=== PATIENT | male | born 1965 | race Caucasian/White ===

== ENCOUNTER 2020-08-21 06:07 | Outpatient (REF) | payer OTHER, SELFPAY ==
[2020-08-21 06:55] LABS: MANUAL DIFF FLAG NO
[2020-08-21 07:05] LABS: Basophils Absolute Auto 0.1 X10*3/uL (0.0-0.2); Basophils Percent Auto 0.9 % (0-2); Eosinophils Absolute Auto 0.2 X10*3/uL (0.0-0.4); Eosinophils Percent Auto 3.1 % (0-4); Hematocrit 44.1 % (42-52); Hemoglobin 14.5 g/dl (14.0-18.0); Imm Gran Abs Auto 0.02 X10*3/uL (0.00-0.03); Imm Gran Pct Auto 0.3 % (0.0-0.4); Lymphocytes Absolute Auto 1.7 X10*3/uL (1.2-4.9); Lymphocytes Percent Auto 26.7 % (20-40); Mean Corpuscular HGB Conc 32.9 g/dl (31.0-36.0); Mean Corpuscular Hemoglobin 30.2 pg (27.0-33.0); Mean Corpuscular Volume 91.9 fL (80-98); Mean Platelet Volume 10.6 fL (9.4-12.4); Monocytes Absolute Auto 0.6 X10*3/uL (0.1-1.2); Monocytes Percent Auto 8.6 % (2-11); Neutrophils Absolute Auto 3.9 X10*3/uL (2.0-8.3); Neutrophils Percent Auto 60.4 % (45-73); Platelet Count 303 X10*3/uL (160-400); Red Cell Distribution Width 12.1 % (11.0-16.0); White Blood Count 6.5 X10*3/uL (4.8-10.8)
[2020-08-21 07:36] LABS: Alanine Aminotransferase 20 U/L (0-40); Albumin Level 4.3 g/dL (3.5-5.0); Alkaline Phosphatase 45 U/L (39-117); Anion Gap 14 (12-20); Aspartate Amino Transferase 19 U/L (5-37); Bilirubin Total 1.4 mg/dL (0.0-1.0); Blood Urea Nitrogen 14 mg/dL (9-16); Calcium 8.7 mg/dL (8.4-10.2); Carbon Dioxide 27 mmol/L (22-29); Chloride 104 mmol/L (96-108); Cholesterol 158 mg/dL; Estimated Glomerular Filt Rate > 60; Glucose Fasting 93 mg/dL (60-99); HDL Cholesterol 48 mg/dL; LDL Cholesterol Calculated 99 mg/dl; Potassium 4.5 mmol/l (3.3-5.1); Sodium 140 mmol/L (135-145); Triglycerides 55 mg/dL
[2020-08-21 08:10] LABS: Prostate Specific Antigen Scr 0.59 ng/mL (<0.05-4.0)
== END 2020-08-21 06:08 | disposition home or self-care (01) ==
LOC: HO.LAB 06:07
PROVIDERS: PCP Internal Medicine; Visit Provider Internal Medicine
DX: Z00.00 Encounter for general adult medical examination without abnormal findings (principal); Z12.5 Encounter for screening for malignant neoplasm of prostate
CPT/HCPCS: 36415; 80053; 80061; 84153; 85025

== ENCOUNTER 2020-09-17 12:08 | Outpatient (REF) | payer OTHER, SELFPAY ==
[2020-09-17 12:59] LABS: Influenza A PCR NEGATIVE (Negative); Influenza B PCR NEGATIVE (Negative); Resp Syncy Virus RNA Qual PCR NEGATIVE (Negative); SARS COV2 PCR INHOUSE NEGATIVE (Negative)
== END 2020-09-17 12:09 | disposition home or self-care (01) ==
LOC: HO.LNP 12:08
PROVIDERS: Visit Provider Internal Medicine
DX: Z20.822 Contact with and (suspected) exposure to COVID-19 (principal)
CPT/HCPCS: 0241U

== ENCOUNTER 2021-06-11 14:25 | Outpatient (REF) | payer OTHER, SELFPAY ==
[2021-06-11 15:31] LABS: Influenza A PCR NEGATIVE (Negative); Influenza B PCR NEGATIVE (Negative); Resp Syncy Virus RNA Qual PCR NEGATIVE (Negative); SARS COV2 PCR INHOUSE NEGATIVE (Negative)
== END 2021-06-11 14:26 | disposition home or self-care (01) ==
LOC: HO.LNP 14:25
PROVIDERS: Visit Provider Internal Medicine
DX: Z20.822 Contact with and (suspected) exposure to COVID-19 (principal)
CPT/HCPCS: 0241U

== ENCOUNTER 2021-07-22 11:26 | Outpatient (REF) | payer OTHER, SELFPAY ==
[2021-07-22 12:28] LABS: Influenza A PCR NEGATIVE (Negative); Influenza B PCR NEGATIVE (Negative); Resp Syncy Virus RNA Qual PCR NEGATIVE (Negative); SARS COV2 PCR INHOUSE NEGATIVE (Negative)
== END 2021-07-22 11:27 | disposition home or self-care (01) ==
LOC: HO.LNP 11:26
PROVIDERS: Visit Provider Internal Medicine
DX: Z20.822 Contact with and (suspected) exposure to COVID-19 (principal)
CPT/HCPCS: 0241U

== ENCOUNTER 2022-09-24 06:02 | Outpatient (REF) | payer OTHER, SELFPAY ==
[2022-09-24 06:15] LABS: MANUAL DIFF FLAG NO
[2022-09-24 07:47] LABS: Basophils Absolute Auto 0.1 X10*3/uL (0.0-0.2); Basophils Percent Auto 0.7 % (0-2); Eosinophils Absolute Auto 0.2 X10*3/uL (0.0-0.4); Eosinophils Percent Auto 2.7 % (0-4); Hematocrit 44.7 % (42.0-52.0); Imm Gran Abs Auto 0.01 X10*3/uL (0.00-0.03); Imm Gran Pct Auto 0.1 % (0.0-0.4); Lymphocytes Absolute Auto 1.7 X10*3/uL (1.2-4.9); Lymphocytes Percent Auto 24.7 % (20-40); Mean Corpuscular HGB Conc 33.6 g/dl (31.0-36.0); Mean Corpuscular Hemoglobin 30.8 pg (27.0-33.0); Mean Corpuscular Volume 91.8 fL (80.0-98.0); Mean Platelet Volume 10.9 fL (9.4-12.4); Monocytes Absolute Auto 0.7 X10*3/uL (0.1-1.2); Monocytes Percent Auto 10.1 % (2-11); Neutrophils Absolute Auto 4.1 x10*3/uL (2.0-8.3); Neutrophils Percent Auto 61.7 % (45-73); Platelet Count 316 X10*3/uL (160-400); Red Blood Count 4.87 X10*6/uL (4.60-5.80); Red Cell Distribution Width 12.2 % (11.0-16.0); White Blood Count 6.7 X10*3/uL (4.8-10.8)
[2022-09-24 08:18] LABS: Alanine Aminotransferase 19 U/L (0-40); Albumin Level 4.2 g/dL (3.5-5.0); Alkaline Phosphatase 47 U/L (39-117); Anion Gap 14 (12-20); Aspartate Amino Transferase 19 U/L (5-37); Bilirubin Total 1.6 mg/dL (0.0-1.0); Blood Urea Nitrogen 18 mg/dL (9-16); Calcium 8.8 mg/dL (8.4-10.2); Carbon Dioxide 28 mmol/L (22-29); Chloride 105 mmol/L (96-108); Cholesterol 180 mg/dL; Estimated Glomerular Filt Rate > 60; Glucose Fasting 85 mg/dL (60-99); HDL Cholesterol 47 mg/dL; LDL Cholesterol Calculated 120 mg/dl; Potassium 4.6 mmol/L (3.3-5.1); Sodium 142 mmol/L (135-145); Total Protein 6.8 g/dL (6.5-8.0); Triglycerides 65 mg/dL
[2022-09-24 08:33] LABS: Prostate Specific Antigen 0.73 ng/mL (<0.05-4.0)
== END 2022-09-24 06:03 | disposition home or self-care (01) ==
LOC: HO.LAB 06:02
PROVIDERS: PCP Internal Medicine; Visit Provider Internal Medicine
DX: Z00.00 Encounter for general adult medical examination without abnormal findings (principal); Z12.5 Encounter for screening for malignant neoplasm of prostate
CPT/HCPCS: 36415; 80053; 80061; 84153; 85025

== ENCOUNTER 2023-09-26 06:05 | Outpatient (REF) | payer OTHER, SELFPAY ==
[2023-09-26 06:18] LABS: MANUAL DIFF FLAG NO
[2023-09-26 07:33] LABS: Basophils Absolute Auto 0.1 X10*3/uL (0.0-0.2); Basophils Percent Auto 0.8 % (0-2); Eosinophils Absolute Auto 0.2 X10*3/uL (0.0-0.4); Eosinophils Percent Auto 2.9 % (0-4); Hematocrit 44.3 % (42.0-52.0); Hemoglobin 14.5 g/dl (14.0-18.0); Imm Gran Abs Auto 0.01 X10*3/uL (0.00-0.03); Imm Gran Pct Auto 0.2 % (0.0-0.4); Lymphocytes Absolute Auto 1.7 X10*3/uL (1.2-4.9); Lymphocytes Percent Auto 27.9 % (20-40); Mean Corpuscular HGB Conc 32.7 g/dl (31.0-36.0); Mean Corpuscular Volume 91.7 fL (80.0-98.0); Mean Platelet Volume 10.8 fL (9.4-12.4); Monocytes Absolute Auto 0.5 X10*3/uL (0.1-1.2); Monocytes Percent Auto 8.9 % (2-11); Neutrophils Absolute Auto 3.5 x10*3/uL (2.0-8.3); Neutrophils Percent Auto 59.3 % (45-73); Platelet Count 307 X10*3/uL (160-400); Red Blood Count 4.83 X10*6/uL (4.60-5.80); Red Cell Distribution Width 12.1 % (11.0-16.0)
[2023-09-26 07:56] LABS: Appearance Urine Clear; Color Urine Yellow; Glucose Urine UA Negative (Negative); Leukocyte Esterase Urine Negative (Negative); Nitrite Urine Negative (Negative); PH 6.5 (5.0-9.0); Urine Blood Negative (Negative); Urine Ketones Negative (Negative); Urine Protein Negative (Neg-Trace)
[2023-09-26 08:05] LABS: Alanine Aminotransferase 15 U/L (0-40); Albumin Level 4.1 g/dL (3.5-5.0); Alkaline Phosphatase 44 U/L (39-117); Anion Gap 8 (12-20); Aspartate Amino Transferase 18 U/L (5-37); Bilirubin Total 1.6 mg/dL (0.0-1.0); Blood Urea Nitrogen 14 mg/dL (9-16); Carbon Dioxide 31 mmol/L (22-29); Chloride 105 mmol/L (96-108); Cholesterol 162 mg/dL (<200); Estimated Glomerular Filt Rate > 60; Glucose Fasting 82 mg/dL (60-99); HDL Cholesterol 50 mg/dL (>40); LDL Cholesterol Calculated 98 mg/dL (<100); Sodium 140 mmol/L (135-145); Triglycerides 74 mg/dL (<150)
[2023-09-26 08:23] LABS: Prostate Specific Antigen Scr 0.78 ng/mL (<0.05-4.0)
== END 2023-09-26 06:06 | disposition home or self-care (01) ==
LOC: HO.LAB 06:05
PROVIDERS: PCP Internal Medicine; Visit Provider Internal Medicine
DX: Z12.5 Encounter for screening for malignant neoplasm of prostate (principal); Z13.6 Encounter for screening for cardiovascular disorders; N40.0 Benign prostatic hyperplasia without lower urinary tract symptoms; K21.9 Gastro-esophageal reflux disease without esophagitis; R63.4 Abnormal weight loss
CPT/HCPCS: 36415; 80053; 80061; 81003; 84153; 85025

== ENCOUNTER 2024-11-06 07:58 | Day surgery (SDC) | payer OTHER, SELFPAY ==
[2024-11-02 13:06] VITALS: BMI 29.0
[2024-11-06] MEDS: Lactated Ringers 1,000 ML 80 ML IVCONT (08:43)
[2024-11-06 08:44] VITALS: BMI 27.7
[2024-11-06 09:09] VITALS: BP 152/77; PULSE 64; RESP 18; TEMP 36.3; O2SAT 100
--- NOTE | 2024-11-06 10:21 | MHC.SHP ---
Pre-Procedural Eval Section A - 24 Hr Update-Section A only Date of Service: 11/06/24 The patient is an INPATIENT: No Changes since office visit: No Cold of Flu in the past 2 weeks, No New Medical Problems, No Changes in Medication and No Patient answered all questions The patient has been examined within 24 hours of the surgical procedure. The History & Physical has been completed within 30 days and I have reviewed it.: Yes Section B - Complete if H&P > 30 days Chief Complaint: Gastro-esophageal reflux disease without esophagit Allergies: Allergies Allergy/AdvReac Type Severity Reaction Status Date / Time amoxicillin Allergy Intermediate Rash Verified 11/06/24 08:51 (childhood allergy) environmental allergies Allergy Intermediate hayfever Verified 11/06/24 08:51 symptoms Plan I have reviewed the history and physical and performed a pertinent physical examination on my patient. No changes have occurred unless specified. Time Spent With Patient Time: Total time managing care of this patient today ____ minutes.
--- NOTE | 2024-11-06 10:36 | HO.ANESPROP2 ---
HPI - Anesthesia Eval Consult details Narrative: 59 yo male patient for EGD, Colonoscopy PMFSH Past Medical History Medical History BPH (benign prostatic hyperplasia) GERD (gastroesophageal reflux disease) Family History Family history of problems with anesthesia: No Surgical History Surgical History Hx of oral surgery H/O colonoscopy History of Problems with Anesthesia: No Social History Social History Are you a primary director career services to a significant other at home: No Do you presently have visiting nurse or other home services: No Patient Tobacco Use Status: Never used Tobacco Use of substances other than those prescribed or required for medical reasons: No Have you been hit, kicked, punched, or otherwise hurt by someone within the past year? If so, by whom?: No Spiritual Healthcare Practices: no Restorationist Healthcare Practices: no Cultural Healthcare Practices: no Are you DNR?: No Advance Directives: No ( is primary contact) Advance Directives Information Provided: Yes (as above noted) Advance Directives on File: No Poor oral hygiene: No Meds Allergies Allergy/AdvReac Type Severity Reaction Status Date / Time amoxicillin Allergy Intermediate Rash Verified 11/06/24 08:51 (childhood allergy) environmental allergies Allergy Intermediate hayfever Verified 11/06/24 08:51 symptoms Active Medications: Current Medications Lactated Ringer's (Lr) 1,000 mls @ 80 mls/hr IVCONT .[id number] TJ Last Admin: 11/06/24 08:43 Dose: 80 mls/hr Home Medications ?Medication ?Instructions ?Recorded ?Confirmed ?Last Taken ?Type No Known Home Meds 11/02/24 11/02/24 Unknown History Exam Height,Weight and Vital Signs: Height 5 ft 7 in Weight 80.286 kg Last Vital Signs Temp 97.4 F 11/06/24 09:09 Pulse 64 11/06/24 09:09 Resp 18 11/06/24 09:09 BP 152/77 H 11/06/24 09:09 Pulse Ox 100 11/06/24 09:09 O2 Del Method Room Air 11/06/24 09:09 Airway Mallampati Class: III TM Dist: >3cm Neck ROM: Full Loose/Missing/Broken Teeth: No (Dental implants. Denies broken, loose or missing teeth ) Heart: RRR Lungs: CTAB Assessment and Plan Assessment Anesthesia Assessment: Anesthesia Plan Discussed and Chart Reviewed Final Anesthetic Review Family History of Problems with Anesthesia: No History of Problems with Anesthesia: No NPO: Yes ASA Class: II Final Preanesthetic Review: No Changes in Pt Med Stat, Meds/Allgs Chart Reviewed, Consent Obtained/Reviewed and Anes Risks/Benef Reviewed Patient Risk: Low Procedure Risk: Low Assessment/Block/Sedation in SS: Assess/Block/Sedation-SS Anesthetic Plan Anesthetic Plan: TIVA Disposition: Standard PACU
[2024-11-06 11:13] VITALS: BP 99/56; PULSE 58; RESP 17; TEMP 36.4; O2SAT 97
[2024-11-06 11:28] VITALS: BP 102/62; PULSE 53; RESP 17; O2SAT 97
[2024-11-06 11:46] VITALS: BP 141/73; PULSE 49; RESP 17; TEMP 36.8; O2SAT 97
--- NOTE | 2024-11-06 12:30 | OP_ITS ---
DATE OF SERVICE: 11/06/2024 SURGEON: Xavier Canada MD INDICATIONS: Colon cancer screening and gastroesophageal reflux disease. PREOPERATIVE DIAGNOSIS: POSTOPERATIVE DIAGNOSIS: PROCEDURE PERFORMED: Upper endoscopy with biopsy, colonoscopy to the cecum. ESTIMATED BLOOD LOSS: COMPLICATIONS: ANESTHESIA: Monitored anesthesia care. ASSISTANTS: SPECIMENS: DESCRIPTION OF PROCEDURE: A history and physical performed. The risks and benefits of the procedure were explained to the patient. Informed consent was obtained. The patient was placed in the left lateral decubitus position. The Olympus videogastroscope was introduced into the esophagus, stomach, and duodenum. Examination was performed. The scope was removed. He was repositioned for colonoscopy. A digital rectal exam was performed and was found to be normal. The Olympus pediatric videocolonoscope was introduced in the rectum and advanced to the cecum. The cecum was identified by transillumination, palpation, and identification of ileocecal valve. Examination was performed. The scope was removed. He tolerated the procedure well and was returned to recovery area in stable condition. FINDINGS: Esophagus: The esophagus was normal. Biopsies were obtained from the EG junction. Stomach: The stomach showed a focal area of erosive gastritis in the antrum. Biopsies were obtained from the antrum. Duodenum: The bulb and 2nd portion were normal. Colonoscopy: The terminal ileum was not examined. The visualized colonic mucosa was normal. The quality of the prep was good. No polyps were identified. Retroflexed examination showed small internal hemorrhoids. IMPRESSION: 1. Erosive gastritis. 2. Normal colonoscopy. RECOMMENDATIONS: 1. Follow up the biopsy results. 2. Repeat colonoscopy is recommended in 10 years for average-risk individuals. MD ANDERSON Pizarro/PIPERL / [id number]
== END 2024-11-06 12:08 | disposition home or self-care (01) ==
PROVIDERS: PCP Internal Medicine; Visit Provider Internal Medicine Gastroenterology
PROC: (CPT 45378; principal; 2024-11-06 10:00)
DX: Z12.11 Encounter for screening for malignant neoplasm of colon (principal); Z86.0101 Personal history of adenomatous and serrated colon polyps; K64.8 Other hemorrhoids; K21.9 Gastro-esophageal reflux disease without esophagitis; K29.50 Unspecified chronic gastritis without bleeding; R00.0 Tachycardia, unspecified; Z79.899 Other long term (current) drug therapy; Z88.1 Allergy status to other antibiotic agents
CPT/HCPCS: 45378; 43239; 88305; 88313; 88342; J2003; J2704

== ENCOUNTER 2024-11-19 15:14 | Outpatient (AMB) | payer OTHER, SELFPAY ==
--- NOTE | 2024-11-19 15:15 | MHC.PC.OV ---
Vital Signs 11/19/24 15:19 Height 5 ft 7 in Weight 181 lb BMI 28.3 BP 122/74 Blood Pressure Location Lt brachial Position Sitting Pulse 57 Pulse Source Pulse Oximeter Temp 97.7 F Temp Source Axillary Pulse Oximetry (%) 99 Oxygen Delivery Method Room Air Intake Visit Reasons: Physical exam, annual Investment Specialist Required: No Accompanied by: Self / Same As Patient Allergies amoxicillin Allergy (Intermediate, Verified 11/19/24 15:26) Rash (childhood allergy) environmental allergies Allergy (Intermediate, Verified 11/19/24 15:26) hayfever symptoms Medication List - Last Reconciled 11/19/24 by Moise Al MD cholecalciferol (vitamin D3) 25 mcg PO DAILY omeprazole 20 mg PO DAILY Tobacco use date assessed: 11/19/24 Dental Screening Dental Screen Date: 11/19/24 Did you have a dental visit in the last 12 months?: Yes Did you have a dental problem in the last 6 months where you did not have access to dental care?: No PFSH Medical History BPH (benign prostatic hyperplasia) GERD (gastroesophageal reflux disease) Surgical History Hx of oral surgery H/O colonoscopy (~11/06/24) Family History Mother No problems noted. Father No problems noted. Social History Housing: House Are you a primary day care aide to a significant other at home: No Do you presently have visiting nurse or other home services: No Patient Tobacco Use Status: Never used Tobacco e-Cigarette/Vaping Use: Never Used service: No Current occupational status: employed Cognitive needs: No Hearing needs: No Vision needs: Yes (rx glasses) Questionnaire PHQ-9 Over the last 2 weeks, how often have you been bothered by any of the following problems? 1. Little interest or pleasure in doing things: not at all 2. Feeling down, depressed, or hopeless: not at all 3. Trouble falling or staying asleep, or sleeping too much: not at all 4. Feeling tired or having little energy: not at all 5. Poor appetite or overeating: not at all 6. Feeling bad about yourself - or that you are a failure or have let yourself or your family down: not at all 7. Trouble concentrating on things, such as reading the newspaper or watching television: not at all 8. Moving or speaking so slowly that other people could have noticed. Or the opposite - being so fidgety or restless that you have been moving around a lot more than usual: not at all 9. Thoughts that you would be better off or of hurting yourself in some way: not at all Total score: 0 Source: Developed by Drs. Junior Dudley, Diamante Jones, Caden Cisneros and colleagues, with an educational nancie from [employer]. Thrive Questionnaire Date Thrive assessed: 11/19/24 I am a: Patient Within the past 12 months, did the food you bought not last and you didn't have the money to get more?: Never true Within the past 12 months, did you worry whether your food would run out before you got money to buy more?: Never true Do you have trouble paying for medicines?: No Do you have trouble getting transportation to medical appointments?: No Do you have trouble paying your heating and electricity bill?: No Do you have trouble taking care of your child, family member or friend?: No Do you have trouble with day-to-day activities such as bathing, preparing meals, shopping, managing finances, etc.?: No Are you currently unemployed and looking for a job?: No Are you interested in more education?: No THRIVE Score: 0 AUDIT C Alcohol Use Questionnaire (AUDIT-C) 1. How often do you have a drink containing alcohol?: Monthly or less 2. How many drinks containing alcohol do you have on a typical day when you are drinking?: 1 or 2 3. How often do you have six or more drinks on one occasion?: Less than monthly Total Score: 2 JOCELINE-7 AMB Questionnaire JOCELINE-7 Date JOCELINE - 7 assessed: 11/19/24 Feeling nervous, anxious, or on edge: 0 = Not at all Not being able to stop or control worryin = Not at all Worrying too much about different things: 0 = Not at all Trouble relaxin = Not at all Being so restless that it is hard to sit still: 0 = Not at all Becoming easily annoyed or irritable: 0 = Not at all Feeling afraid as if something awful might happen: 0 = Not at all Total JOCELINE-7 score (0-4 normal; 5-9 mild; 10-14 moderate; 15-21 severe): 0 Source: Developed by Drs. Junior Dudley, Diamante Jones, Caden Cisneros and colleagues, with an educational nancie from [employer]. Physical exam (Primary Care) Vital Signs: Last Vital Signs Temp 97.7 F 11/19/24 15:19 Pulse 57 11/19/24 15:19 BP 122/74 11/19/24 15:19 Pulse Ox 99 11/19/24 15:19 Oxygen Delivery Method Room Air 11/19/24 15:19 BMI result Body Mass Index 28.3 Tobacco/Smoking Status: Tobacco use Status Tobacco use date assessed 11/19/24 11/19/24 15:24 Patient Tobacco Use Status Never used Tobacco 11/19/24 15:24 e-Cigarette/Vaping Use Never Used 11/19/24 15:24 PHQ-9: PHQ-9 Score PHQ-9: Total score 0 11/19/24 15:24 Thrive Assessment: Date of Thrive Assessment Date Thrive assessed 11/19/24 11/19/24 15:24 Coding Level of Care Code New Pt Level 3 (31842) New Pt Prev Care 40-64y(92519) Diagnoses Encounter for annual physical exam Z00.00 Assessment & Plan Assessment & Plan (1) Encounter for annual physical exam: Code(s): Z00.00 - Encounter for general adult medical examination without abnormal findings Plan: Blood work ordered Plan History of Present Illness The patient is a 59-year-old male presenting with a primary complaint of gastrointestinal symptoms including excessive gas, increased bowel movements, and frequent urination. An endoscopy conducted during a routine colonoscopy noted findings consistent with gastroesophageal reflux disease. The patient was subsequently prescribed Prilosec, which he has been taking for one week without noticeable improvement. He moderates his intake of carbonated drinks and tries to maintain a balanced diet. Additionally, he acknowledges a history of prostatic enlargement and is on vitamin D supplementation for energy levels, which were previously low likely due to deficiency. 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, followed by home chores - Sleep Routine: Sleep typically disrupted, often falls asleep on the couch before going to bed Review of Systems - Gastrointestinal: Reports excessive gas production, increased bowel movements - Cardiovascular: Reports accelerated heart rate associated with gastrointestinal symptoms - Genitourinary: Reports frequent urination, denies urinary pain - Endocrine: Denies signs of anxiety or depression but notes fatigue potentially related to vitamin D deficiency - General: Denies any noticeable anxiety or depression Physical Exam General: Cooperative and healthy appearing Nutritional Appearance: Well nourished Orientation/consciousness: Patient oriented x3 Limitations: No limitations Head: Normal to inspection General: Appearance normal, both eyes and all related structures Neck: Normal visual inspection Chest: Normal palpation of entire chest wall Respiratory: Deep breath. Everything is good. ormal respiratory effort Neurology: Patient oriented x3 Results - Tests: Endoscopy revealed acid reflux Plan I will maintain the patient's current Prilosec therapy for GERD symptoms, with a follow-up on symptom progression. Emphasis was placed on dietary adjustments to reduce triggers such as carbonated beverages, fatty foods, and caffeine. Fasting blood work will be conducted to determine the status of the prostate and vitamin D levels, with consideration for a PSA test. Continued monitoring and reassessment will be based on these results, influencing future management strategies. Patient was informed and verbally consented to the use of an ambient scribe for clinic note documentation during this visit. Discussion Notes I discussed with the patient the current status of his gastrointestinal symptoms and the course of treatment with Prilosec. Emphasis was placed on dietary modifications to potentially reduce symptoms. Concerns regarding prostatic enlargement will be further investigated through blood work, and ongoing management will be tailored based on subsequent findings. I clarified the benefits of maintaining vitamin D therapy and the importance of sleep schedule adjustments. The patient agreed with the proposed plan and understands the steps moving forward, including when to return or contact the clinic with concerns. Patient Instructions - Continue taking Prilosec as prescribed for GERD - Avoid carbonated beverages and minimize intake of fatty foods and chocolate - Complete fasting blood work as instructed for further evaluation - Maintain regular sleep patterns and reduce late-night screen time - Follow up with the clinic if symptoms do not improve or worsen
[2024-11-19 15:19] VITALS: BP 122/74; PULSE 57; TEMP 36.5; O2SAT 99; BMI 28.3
== END 2024-11-19 15:38 | disposition home or self-care (01) ==
LOC: HO.HMCHD 15:15
PROVIDERS: PCP Internal Medicine; Visit Provider Internal Medicine
DX: Z00.00 Encounter for general adult medical examination without abnormal findings (principal)

== ENCOUNTER → 2024-11-19 15:14 | Outpatient (BNVA) | payer OTHER, SELFPAY | PROVIDERS: PCP Internal Medicine; Visit Provider Internal Medicine ==

== ENCOUNTER 2024-11-28 06:00 | Outpatient (REF) | payer OTHER, SELFPAY ==
[2024-11-28 06:19] LABS: MANUAL DIFF FLAG NO
[2024-11-28 07:23] LABS: Basophils Absolute Auto 0.1 X10*3/uL (0.0-0.2); Basophils Percent Auto 0.7 % (0-2); Eosinophils Absolute Auto 0.2 X10*3/uL (0.0-0.4); Eosinophils Percent Auto 2.7 % (0-4); Hemoglobin 13.8 g/dl (14.0-18.0); Imm Gran Abs Auto 0.02 X10*3/uL (0.00-0.03); Imm Gran Pct Auto 0.3 % (0.0-0.4); Lymphocytes Absolute Auto 1.7 X10*3/uL (1.2-4.9); Lymphocytes Percent Auto 24.2 % (20-40); Mean Corpuscular HGB Conc 32.9 g/dl (31.0-36.0); Mean Corpuscular Hemoglobin 30.2 pg (27.0-33.0); Mean Corpuscular Volume 91.9 fL (80.0-98.0); Mean Platelet Volume 10.7 fL (9.4-12.4); Monocytes Absolute Auto 0.6 X10*3/uL (0.1-1.2); Monocytes Percent Auto 9.2 % (2-11); Neutrophils Absolute Auto 4.4 x10*3/uL (2.0-8.3); Neutrophils Percent Auto 62.9 % (45-73); Platelet Count 300 X10*3/uL (160-400); Red Blood Count 4.57 X10*6/uL (4.60-5.80); Red Cell Distribution Width 12.3 % (11.0-16.0); White Blood Count 6.9 X10*3/uL (4.8-10.8)
[2024-11-28 07:36] LABS: Estimated Average Glucose 105 mg/dL; Hemoglobin A1C 123.9667 umol/L; Hemoglobin A1c % 5.3 % (<6.0)
[2024-11-28 07:57] LABS: Alanine Aminotransferase 17 U/L (0-40); Alkaline Phosphatase 42 U/L (39-117); Anion Gap 12 (12-20); Aspartate Amino Transferase 24 U/L (5-37); Bilirubin Direct 0.5 mg/dL (0.0-0.5); Bilirubin Total 1.6 mg/dL (0.0-1.0); Blood Urea Nitrogen 15 mg/dL (9-16); Calcium 8.7 mg/dL (8.4-10.2); Carbon Dioxide 28 mmol/L (22-29); Chloride 104 mmol/L (96-108); Cholesterol 171 mg/dL (<200); Estimated Glomerular Filt Rate > 60; Glucose Random 90 mg/dL (60-115); HDL Cholesterol 44 mg/dL (>40); LDL Cholesterol Calculated 108 mg/dL (<100); Potassium 4.2 mmol/L (3.3-5.1); Sodium 140 mmol/L (135-145); Total Protein 6.8 g/dL (6.5-8.0); Triglycerides 98 mg/dL (<150)
[2024-11-28 08:00] LABS: TSH reflex Free T4 2.08 uIU/mL (0.32-4.0)
== END 2024-11-28 06:01 | disposition home or self-care (01) ==
LOC: HO.LAB 06:00
PROVIDERS: PCP Internal Medicine; Visit Provider Physician Assistant
DX: Z00.00 Encounter for general adult medical examination without abnormal findings (principal)
CPT/HCPCS: 36415; 80048; 80061; 80076; 83036; 84443; 85025

== ENCOUNTER 2025-05-13 15:24 | Outpatient (AMB) | payer OTHER, SELFPAY ==
[2025-05-13 15:45] VITALS: BP 128/76; PULSE 54; TEMP 36.6; O2SAT 98; BMI 29.4
--- NOTE | 2025-05-13 15:45 | A.OFFPC_ITS ---
Vital Signs 05/13/25 15:45 Height 5 ft 7 in Weight 188 lb BMI 29.4 BP 128/76 Blood Pressure Location Rt brachial Position Sitting Pulse 54 Pulse Source Pulse Oximeter Temp 97.8 F Temp Source Temporal Artery Scan Pulse Oximetry (%) 98 Oxygen Delivery Method Room Air Intake Visit Reasons: 6 Month F/U - see comments Air Tube Releaser Required: No Accompanied by: Self / Same As Patient Allergies amoxicillin Allergy (Intermediate, Verified 05/13/25 15:46) Rash (childhood allergy) environmental allergies Allergy (Intermediate, Verified 05/13/25 15:46) hayfever symptoms Medication List - Last Reconciled 06/03/25 by RICKIE Webster cholecalciferol (vitamin D3) 25 mcg PO DAILY omeprazole 20 mg PO DAILY Tobacco use date assessed: 05/13/25 Dental Screening Dental Screen Date: 05/13/25 Did you have a dental visit in the last 12 months?: Yes Did you have a dental problem in the last 6 months where you did not have access to dental care?: No HPI HPI Comments History of Present Illness Details The patient is a 59-year-old male with GERD and low vitamin D presenting to [facility] care and with gastrointestinal symptoms and benign prostatic hyperplasia. The gastrointestinal symptoms began approximately two years ago, characterized by nocturnal episodes of rapid heartbeat, frequent urination, and excessive gas and burping. These symptoms have been intermittent, with episodes occurring once every one to two weeks, lasting for a few days before resolving. The patient has attempted dietary modifications, such as reducing alcohol and citrus intake, without significant improvement. An endoscopy revealed acid presence, leading to a diagnosis of gastroesophageal reflux disease (GERD), for which omeprazole was prescribed. The patient reports partial symptom relief with omeprazole, though symptoms recur upon cessation of the medication. The patient also experiences symptoms suggestive of irritable bowel syndrome (IBS), including diarrhea and bloating, which are exacerbated by stress. The patient has been advised to incorporate fiber supplements to manage these symptoms. Regarding benign prostatic hyperplasia (BPH), the patient reports a history of slightly enlarged prostate, confirmed by previous examinations. He experiences frequent urination, particularly after fluid intake, which is consistent with BPH. Patient had labs in November that were essentially normal and is due for colonoscopy in 10/2034. Medical History: - Gastroesophageal reflux disease (GERD) - Irritable bowel syndrome (IBS) - Benign prostatic hyperplasia (BPH) Surgical History: - Colonoscopy and endoscopy performed by Dr. [place] Medications: - Omeprazole for gastroesophageal reflux disease - Vitamin D supplementation - Cialis, previously used for benign pro static hyperplasia, currently discontinued Patient was informed and verbally consented to the use of an ambient scribe for clinic note documentation during this visit. [facility] Medical History (Updated 06/03/25 @ 02:11 by RICKIE Webster) BPH (benign prostatic hyperplasia) GERD (gastroesophageal reflux disease) IBS (irritable bowel syndrome) Surgical History H/O colonoscopy (~11/06/24) Hx of oral surgery Family History (Updated 05/13/25 @ 15:51 by Cynthia Miller MA) Mother No problems noted. Father No problems noted. Social History Housing: House Are you a primary direct care professional to a significant other at home: No Do you presently have visiting nurse or other home services: No Patient Tobacco Use Status: Never used Tobacco e-Cigarette/Vaping Use: Never Used service: No Current occupational status: employed Cognitive needs: No Hearing needs: No Vision needs: Yes (rx glasses) Questionnaire PHQ-9 Over the last 2 weeks, how often have you been bothered by any of the following problems? 1. Little interest or pleasure in doing things: not at all 2. Feeling down, depressed, or hopeless: not at all 3. Trouble falling or staying asleep, or sleeping too much: not at all 4. Feeling tired or having little energy: not at all 5. Poor appetite or overeating: not at all 6. Feeling bad about yourself - or that you are a failure or have let yourself or your family down: not at all 7. Trouble concentrating on things, such as reading the newspaper or watching television: not at all 8. Moving or speaking so slowly that other people could have noticed. Or the opposite - being so fidgety or restless that you have been moving around a lot more than usual: not at all 9. Thoughts that you would be better off or of hurting yourself in some way: not at all Total score: 0 Depression Screening Interpretation: Negative Depression Screening Done: Yes Source: Developed by Drs. Junior Dudley, Diamante Jones, Caden Cisneros and colleagues, with an educational nancie from [employer]. Thrive Questionnaire Date Thrive assessed: 05/13/25 I am a: Patient Within the past 12 months, did the food you bought not last and you didn't have the money to get more?: Never true Within the past 12 months, did you worry whether your food would run out before you got money to buy more?: Never true Do you have trouble paying for medicines?: No Do you have trouble getting transportation to medical appointments?: No Do you have trouble paying your heating and electricity bill?: No Do you have trouble taking care of your child, family member or friend?: No Do you have trouble with day-to-day activities such as bathing, preparing meals, shopping, managing finances, etc.?: No Are you currently unemployed and looking for a job?: No Are you interested in more education?: No THRIVE Score: 0 AUDIT C Alcohol Use Questionnaire (AUDIT-C) 1. How often do you have a drink containing alcohol?: Monthly or less 2. How many drinks containing alcohol do you have on a typical day when you are drinking?: 1 or 2 3. How often do you have six or more drinks on one occasion?: Less than monthly Total Score: 2 JOCELINE-7 AMB Questionnaire JOCELINE-7 Date JOCELINE - 7 assessed: 05/13/25 Feeling nervous, anxious, or on edge: 0 = Not at all Not being able to stop or control worryin = Not at all Worrying too much about different things: 0 = Not at all Trouble relaxin = Not at all Being so restless that it is hard to sit still: 0 = Not at all Becoming easily annoyed or irritable: 0 = Not at all Feeling afraid as if something awful might happen: 0 = Not at all Total JOCELINE-7 score (0-4 normal; 5-9 mild; 10-14 moderate; 15-21 severe): 0 Source: Developed by Drs. Junior Dudley, Caden Mclean and colleagues, with an educational nancie from [employer]. Review of Systems Narrative - Cardiovascular: Reports episodes of palpitations. Denies chest pain. - Gastrointestinal: Reports intermittent diarrhea, bloating, and excessive gas. Denies constipation. - Genitourinary: Reports frequent urination, especially after fluid intake. Physical exam (Primary Care) Vital Signs: Last Vital Signs Temp 97.8 F 05/13/25 15:45 Pulse 54 05/13/25 15:45 BP 128/76 05/13/25 15:45 Pulse Ox 98 05/13/25 15:45 Oxygen Delivery Method Room Air 05/13/25 15:45 BMI result Body Mass Index 29.4 GENERAL Well developed, overweight, in no apparent distress HEENT Head-Normocephalic Eyes- PERRLA, EOMI, Conjuctiva clear, lids WNL Ears- Canals clear, TMs WNL Mouth/Throat-No lesions, no erythema, no exudate Neck- Supple, No lymphadenopathy, thyroid WNL RESPIRATORY Normal I:E, Clear to auscultation CARDIOVASCULAR Regular, rate and rhythm, No murmurs or rubs GASTROINTESTINAL Soft, nontender, increased bowel sounds, no masses MUSCULOSKELETAL Back- nontender Joints- no swelling or deformity NEUROLOGICAL Gait normal PSYCHIATRIC Oriented to person, place and time Mood and affect WNL Appearance WNL Speech WNL Thought processes WNL Tobacco/Smoking Status: Tobacco use Status Tobacco use date assessed 05/13/25 05/13/25 15:47 Patient Tobacco Use Status Never used Tobacco 05/13/25 15:47 e-Cigarette/Vaping Use Never Used 05/13/25 15:47 PHQ-9: PHQ-9 Score PHQ-9: Total score 0 05/13/25 15:47 Depression Screening Interpretation: Negative Thrive Assessment: Date of Thrive Assessment Date Thrive assessed 05/13/25 05/13/25 15:47 Coding Level of Care Code Established Pt Est Pt Level 4 (81836) Patient Type Established Diagnoses IBS (irritable bowel syndrome) K58.9 GERD (gastroesophageal reflux disease) K21.9 BPH (benign prostatic hyperplasia) N40.0 Time Spent (min) 30 Comment Time was spent on chart review, Medication reconciliation, H&P, patient education, orders. Assessment & Plan Assessment & Plan (1) IBS (irritable bowel syndrome): Code(s): K58.9 - Irritable bowel syndrome, unspecified Category: Medical Plan: The patient is advised to incorporate fiber supplements, such as Benefiber, to alleviate symptoms of irritable bowel syndrome. Monitoring of symptoms and a follow-up in three months will help evaluate the effectiveness of this intervention. (2) GERD (gastroesophageal reflux disease): Code(s): K21.9 - Gastro-esophageal reflux disease without esophagitis Category: Medical Plan: The patient will continue with omeprazole to manage gastroesophageal reflux disease symptoms, as it has provided partial relief. A follow-up in three months is recommended to assess symptom control and determine if further gastroenterological evaluation is necessary. (3) BPH (benign prostatic hyperplasia): Code(s): N40.0 - Benign prostatic hyperplasia without lower urinary tract symptoms Category: Medical Plan: The patient has discontinued Cialis, previously used for benign prostatic hyperplasia, and will monitor urinary symptoms. Further evaluation may be considered if symptoms persist or worsen. Plan I discussed with the patient the management of gastroesophageal reflux disease using omeprazole, which has provided partial relief. We also talked about incorporating fiber supplements to manage irritable bowel syndrome symptoms and the importance of monitoring these symptoms. The patient was informed about the potential need for further evaluation if symptoms persist, particularly regarding benign prostatic hyperplasia. Medications: New omeprazole 20 mg PO DAILY 90 caps 2RF for acid Patient Instructions: - Continue taking omeprazole as prescribed to manage GERD symptoms. - Start using fiber supplements like Benefiber to help with IBS symptoms. - Monitor urinary symptoms and report any changes or worsening. - Schedule a follow-up appointment in three months to reassess symptoms and treatment effectiveness.
== END 2025-05-13 16:58 | disposition home or self-care (01) ==
LOC: HO.HMCHD 15:25
PROVIDERS: PCP Internal Medicine; Visit Provider Physician Assistant Medical
DX: K58.9 Irritable bowel syndrome, unspecified (principal); K21.9 Gastro-esophageal reflux disease without esophagitis; N40.0 Benign prostatic hyperplasia without lower urinary tract symptoms